=== PATIENT | male | born 1980 | race Caucasian/White ===

== ENCOUNTER → 2016-08-04 | Outpatient (CLI) | payer OTHER ==
[~2016-08-04] MED LIST: NORCO 5-325 TA1 EACH PO; ROCEPHIN 22 G/50 ML IV; SENOKOT-S TABL1 EACH PO
== END ==
LOC: RAD 12:03
DX: M54.5 Low back pain (principal)
CPT/HCPCS: 72110

== ENCOUNTER → 2020-09-22 | Outpatient (CLI) | payer OTHER ==
[~2020-09-22] MED LIST changes: +CIPRO500 MG PO; +CLEOCIN HCL300 MG PO
== END ==
LOC: KOH-I 12:31
DX: M79.89 Other specified soft tissue disorders (principal)
CPT/HCPCS: 73130

== ENCOUNTER → 2020-12-15 | Outpatient (CLI) | payer MEDICARE, OTHER | LOC: MRI 09:44 | DX: R22.32 Localized swelling, mass and lump, left upper limb (principal) | CPT/HCPCS: 36415; 82565; 84520 ==

== ENCOUNTER 2021-06-11 15:24 | Emergency (ER) | payer MEDICARE, OTHER ==
[2021-06-11 17:04] LABS: HEMOGLOBIN 13.8 gm/dl (14.0-17.5); RED BLOOD COUNT 4.46 M/UL (4.20-5.50)
[2021-06-11 17:35] LABS: BUN/CREATININE RATIO 19 (0-10)
== END 2021-06-11 18:20 | disposition home or self-care (01) ==
LOC: ER1 15:24
PROVIDERS: Physician Assistant
DX: I83.92 Asymptomatic varicose veins of left lower extremity (principal); E11.9 Type 2 diabetes mellitus without complications; I10 Essential (primary) hypertension
CPT/HCPCS: 80053; 83605; 85025; 93971; 99284

== ENCOUNTER → 2021-07-12 | Outpatient (CLI) | payer MEDICARE, OTHER | LOC: HEART 5 15:30 | DX: R07.9 Chest pain, unspecified (principal) ==